=== PATIENT | female | born 1995 | race Caucasian/White ===

== ENCOUNTER 2017-03-06 01:14 | Emergency (ER) | payer BC ==
[~2017-03-06] VITALS: Ht 172.7 cm; Wt 59.0 kg
[2017-03-06] VITALS (7 sets, daily range): BP systolic 92–125; BP diastolic 48–70
[2017-03-06 01:41] LABS: BASOPHILS % (AUTO) 1.1 % (0.0-2.0); EOSINOPHILS % (AUTO) 1.8 % (0.0-3.0); KETONES,URINE 2+ (NEGATIVE); LEUKOCYTE ESTERASE ,URINE NEGATIVE (NEGATIVE); MEAN CORPUSCULAR HEMOGLOBIN 30.6 PG (27.0-31.0); MEAN CORPUSCULAR HGB CONC 33.3 G/DL (32.0-36.0); MEAN CORPUSCULAR VOLUME 92 FL (80-99); MEAN PLATELET VOLUME 7.2 FL (6.5-10.1); MONOCYTES % (AUTO) 11.4 % (1.0-10.0); NEUTROPHILS % (AUTO) 57.7 % (45.0-75.0); NITRITE,URINE NEGATIVE (NEGATIVE); PH,URINE 5 (4.5-8.0); PLATELET COUNT 317 K/UL (150-450); RED CELL DISTRIBUTION WIDTH 13.8 % (11.6-14.8); UROBILINOGEN,URINE 1 MG/DL (0.0-1.0); WHITE BLOOD COUNT 8.6 K/UL (4.8-10.8)
[2017-03-06 01:45] LABS: APPEARANCE,URINE CLEAR
[2017-03-06 01:46] LABS: PROTEIN,URINE NEGATIVE (NEGATIVE)
[2017-03-06 01:55] LABS: ACETAMINOPHEN < 10 ug/mL (10-30); ALANINE AMINOTRANSFERASE 6 U/L (3-33); ALBUMIN/GLOBULIN RATIO 1.5 (1.0-2.7); ALCOHOL < 10 mg/dL; ASPARTATE AMINO TRANSFERASE 19 U/L (5-40); CALCIUM 9.3 mg/dL (8.6-10.2); CARBON DIOXIDE 26 mEQ/L (20-30); CREATININE 0.8 mg/dL (0.5-0.9); GLOMERULAR FILTRATION RATE > 60 mL/min (>60); TOTAL PROTEIN 6.9 g/dL (6.6-8.7)
[2017-03-06 01:56] LABS: ANION GAP 17 (5-15); CHLORIDE 97 mEQ/L (98-107); HEMOLYSIS 9; POTASSIUM 4.2 mEQ/L (3.4-4.9); SODIUM 140 mEQ/L (135-145)
--- NOTE | 2017-03-06 04:24 | Emergency Room Report ---
History of Present Illness General Chief Complaint: Overdose Source: Patient, Friend, EMS Present Illness HPI Is a 21-year-old female with history of anxiety on Xanax. Initially she was brought in as altered mental status. Initial history was through the people whom she was staying in with EMS. She just recently came from [place]. She was a friend of a friend. The person is out of her stay for couple days. Patient was taking some Xanax. She left to go to a constitution party with someone else. Per her friend, when she came home she was unsteady and appear to be intoxicated. She did mention that she use some GHB. She then took off all her clothes and went to sleep. A friend was concerned and noticed that she was gasping for air and not breathing right. She called 911. Initially, unable to get any history from patient. After about 3 hours, patient is woke up spontaneously. She said that she did use drugs tonight and had some GHB. Denies suicidal thoughts or homicidal thought. Said that this happen before. Denies any assault. Allergies: Coded Allergies: UNABLE TO ASSESS (Unverified , 03/06/17) Patient History Past Medical History: see triage record, old chart reviewed, psych hx Past Surgical History: other Pertinent Family History: none Social History: Reports: drug use Last Menstrual Period: unk Now: No Immunizations: other Reviewed Nursing Documentation: PMH: Agreed, PSxH: Agreed Nursing Documentation-PMH Past Medical History: No Stated History Review of Systems All Other Systems: limited - Secondary to her condition Physical Exam Vital Signs Date Time Temp Pulse Resp B/P Pulse Ox O2 Delivery O2 Flow Rate FiO2 03/06/17 01:14 50 14 107/72 100 Non-Rebreather 15.0 03/06/17 01:15 98.9 vitals unremarkable Sp02 EP Interpretation: reviewed, normal General Appearance: well appearing, no apparent distress, Stupor Head: normocephalic, atraumatic Eyes: bilateral eye EOMI, bilateral eye PERRL ENT: normal pharynx Neck: full range of motion, supple, no meningismus Respiratory: chest non-tender, lungs clear, normal breath sounds Cardiovascular #1: regular rate, rhythm, no murmur Gastrointestinal: normal bowel sounds, non tender, no mass, no organomegaly, no bruit, non-distended Musculoskeletal: back normal, normal range of motion Neurologic: grossly normal Skin: warm/dry Medical Decision Making Diagnostic Impression: Primary Impression: Drug overdose Qualified Codes: T50.901A - Poisoning by unspecified drugs, medicaments and biological substances, accidental (unintentional), initial encounter Additional Impression: Encephalopathy acute ER Course Patient had polysubstance drug overdose. The fact that she will spontaneously deep stuporous state indicate this is GHB also. She is high risk for overdose and dying. She's not suicidal or homicidal. Is no criteria for 5150. She is back at baseline now. This patient is a chronic risk of self injury due to poor impulse control, limited coping skills, and judgment intermittently impaired by intoxication. I believe that the available clinical evidence to suggest that these characteristics derived primarily from personality disorder and are likely very stable over time. Hospitalization would likely attenuate risk of self-harm only during half-way period, without lasting risk reduction. Serious self-harm , while possible, would likely be inadvertent, and because of impulsivity, and foreseeable. For these reasons, I do not believe hospitalization would provide meaningful reduction in risk of self-harm. Lab Results Impression labs unremarkable EKG Diagnostic Results Rate: normal Rhythm: NSR ST Segments: no acute changes Rhythm Strip Diag. Results EP Interpretation: yes Rate: 50 Rhythm: NSR, no PVC's, no ectopy CT/MRI/US Diagnostic Results CT/MRI/US Diagnostic Results : Imaging Test Ordered: CT head Impression negative per radiologist Last Vital Signs Date Time Temp Pulse Resp B/P Pulse Ox O2 Delivery O2 Flow Rate FiO2 03/06/17 02:53 50 16 95/55 100 Non-Rebreather 15.0 03/06/17 01:15 98.9 Status: improved Disposition: HOME, SELF-CARE Condition: Stable Referrals: NOT CHOSEN IPA/,REFERRING (PCP) Patient Instructions: OVERDOSE, Accidental (Adult) Additional Instructions: You are higher risk of dying from drug overdose. Abstain from drugs and alcohol. Go to rehabilitation. Followup with your DrVanessa in 7 days. Return if worse. MORIAH GUILLEN M.D. March 06, 2017 04:24
--- NOTE | 2017-03-06 09:50 | Diagnostic Imaging Report ---
Indication: Altered mental status Technique: Continuous helical CT scanning of the head was performed utilizing automated exposure control without intravenous contrast material. Axial and coronal reconstructions were obtained. Comparison: None CT dose: Total DLP 1274 mGycm; CTDI vol 70.4 mGy Findings: There is no acute intracranial hemorrhage, mass effect or cortical edema. The ventricles, cisterns and sulci are within normal limits. The posterior fossa and fourth ventricle are unremarkable. Sellar and suprasellar regions are grossly unremarkable. Visualized mastoid air cells and paranasal sinuses are unremarkable. No focal lesions of the bony calvarium or soft tissues of the scalp are seen. Impression: No evidence of acute intracranial hemorrhage, mass effect or cortical edema. MRI may be obtained for more sensitive evaluation as clinically indicated. The CT scanner at [facility] is accredited by the [employer] and the scans are performed using protocols designed to limit radiation exposure to as low as reasonably achievable to attain images of sufficient resolution adequate for diagnostic evaluation.
== END 2017-03-06 05:10 | disposition home or self-care (01) ==
LOC: EDBD 01:14 → EMR 01:26
DX: T50.901A Poisoning by unspecified drugs, medicaments and biological substances, accidental (unintentional), initial encounter (principal); G93.40 Encephalopathy, unspecified; X58.XXXA Exposure to other specified factors, initial encounter; Y93.9 Activity, unspecified; Y92.9 Unspecified place or not applicable
CPT/HCPCS: 36415; 70450; 80053; 80300; 81003; 81025; 82962; 85025; 96374; 99284; G0480; 80329